=== PATIENT | female | born 1990 | race African-American/Black ===

== ENCOUNTER 2017-06-29 17:29 | Emergency (ER) | payer MEDICAID ==
[~2017-06-29] VITALS: Ht 165.1 cm; Wt 68.0 kg
[~2017-06-29 17:29] MED LIST: PREN-88 PO
[2017-06-30 08:09] VITALS: BP 120/77
== END 2017-06-30 08:13 | disposition home or self-care (01) ==
LOC: ER 18:54
DX: H10.9 Unspecified conjunctivitis (principal); M25.532 Pain in left wrist
CPT/HCPCS: 73110; 81025; 99284

== ENCOUNTER 2021-02-01 19:41 | Emergency (ER) | payer MEDICAID ==
[~2021-02-01] VITALS: Ht 170.2 cm; Wt 63.0 kg
[2021-02-02 00:24] VITALS: BP 136/86
== END 2021-02-02 00:25 | disposition home or self-care (01) ==
LOC: ER 19:41
DX: T18.8XXA Foreign body in other parts of alimentary tract, initial encounter (principal); X58.XXXA Exposure to other specified factors, initial encounter; Y93.89 Activity, other specified; Y92.010 Kitchen of single-family (private) house as the place of occurrence of the external cause; R03.0 Elevated blood-pressure reading, without diagnosis of hypertension
CPT/HCPCS: 70360; 71046; 81025; 99284

== ENCOUNTER 2021-05-05 05:25 | Emergency (ER) | payer MEDICAID ==
[~2021-05-05] VITALS: Ht 165.1 cm; Wt 80.0 kg
[2021-05-05 05:29] VITALS: BP 156/86
[2021-05-05] MEDS ORDERED: LIDOCAINE HCL/PF 1% 10 MG/ML 5ML VIAL INFIL ONE (06:30)
[2021-05-05] MEDS ORDERED: TETANUS, DIPHTHERIA, PERTUSSIS VAC/PF 0.5ML (>10YR OLD) IM ONE (06:30)
== END 2021-05-05 07:23 | disposition left against medical advice (07) ==
LOC: ER 05:25
DX: S01.512A Laceration without foreign body of oral cavity, initial encounter (principal); S06.9X9A Unspecified intracranial injury with loss of consciousness of unspecified duration, initial encounter; F10.129 Alcohol abuse with intoxication, unspecified; V49.9XXA Car occupant (driver) (passenger) injured in unspecified traffic accident, initial encounter; Y93.89 Activity, other specified; Y92.89 Other specified places as the place of occurrence of the external cause; Y99.8 Other external cause status; Y90.9 Presence of alcohol in blood, level not specified
CPT/HCPCS: 12013; 90471; 90715; 99283; J3490; Z7610